=== PATIENT | female | born 2000 | race Caucasian/White ===

== ENCOUNTER 2023-09-02 10:59 | Day surgery (SDC) | payer MEDICAID ==
[~2023-09-02] VITALS: Ht 154.9 cm; Wt 74.4 kg
[~2023-09-02 10:59] MED LIST: AMOXICILLIN 8751 TAB PO; CEPHALEXIN500 M1 PO; NORCO 325 MG-51 TAB PO; NP THYROID30 MG PO; ROXICODONE 55 MG/TAB PO; TIROSINT88 MC1 PO; ZOFRAN ODT4 MG PO; ZYRTEC 10MG10 MG PO
[2023-09-02] MEDS ORDERED: Ondansetron 4 MG/2 ML VIAL IV PRN ×2 (11:30→13:15)
[2023-09-02] MEDS ORDERED: Morphine 4 MG/ML VIAL IV ONE (11:30)
[2023-09-02] MEDS ORDERED: Ketorolac 15 MG/ML VIAL IV SCH (11:30)
[2023-09-02] MEDS ORDERED: NS 1,000 ML IV SCH (11:30)
[2023-09-02] MEDS ORDERED: Promethazine 25 MG/ML 1 ML VIAL IV PRN (13:15)
[2023-09-02] MEDS ORDERED: fentaNYL 50 MCG/ML 2 ML VIAL IV PRN (13:15)
[2023-09-02] MEDS ORDERED: hydrALAZINE 20 MG/ML 1 ML VIAL IV PRN (13:15)
[2023-09-02] MEDS ORDERED: HYDROmorphone 2 MG/1 ML VIAL IV PRN (13:15)
[2023-09-02] MEDS ORDERED: droPERidol 2.5 MG/ML 2 ML VIAL IV PRN (13:15)
[2023-09-02] MEDS ORDERED: LR 1,000 ML IV SCH (14:00)
[2023-09-02 14:37] VITALS: BP 106/63; PULSE 84; TEMP 99.5
--- NOTE | 2023-09-02 14:40 | NUR ---
1115 PT TO [place] 2 VIA WHEEL CHAIR. PT IS CRYING R/T PAIN SX, REPORTING 6/10 PAIN IN LLQ ABD. AND LEFT FLANK. CONSENTS REVIEWED AND SIGNED BY PT. IV ESTABLISHED. KUB COMPLETED AFTER CONFIRMED NON STATUS. NS INFUSING VIA DIAL A FLOW AT 150 ML/HR. PT MEDICATED WITH TORADOL. CALL LIGHT IN REACH. WARM BLANKET PROVIDED. 1350 PT AMBULATORY TO RESTROOM. URINE STRAINED AND 2 MM STONE FOUND AND COLLECTED.
[2023-09-02 15:50] VITALS: BP 100/59; PULSE 72; TEMP 98.5
--- NOTE | 2023-09-02 16:01 | NUR ---
1458 DR. FUENTES NOTIFIED THAT PATIENT HAS PASSED A 1-2 MM STONE AND IS CURRENTLY PAIN FREE. RECEIVED VERBAL ORDER TO DISCHARGE PATIENT TO HOME AND FOLLOW UP NEEDED.
--- NOTE | 2023-09-02 16:03 | NUR ---
PATIENT TOLERATED A BLUEBERRY MUFFIN AND APPLE JUICE. 1556 PHYSICIAN DISCHARGE INSTUCTIONS AND PATIENT EDUCATIONAL MATERIALS REVIEWED WITH PATIENT AND HER MOTHER.QUESTIONS INVITED AND ANSWERED. PATIENT DECLINED OFFERED WHEEL CHAIR AND AMBULATED TO [facility]OBBY FOR A RIDE HOME WITH HER MOTHER IN [facility].
== END 2023-09-02 15:56 | disposition home or self-care (01) ==
LOC: SDCO 10:59
PROVIDERS: Urology
DX: N20.1 Calculus of ureter (principal)
CPT/HCPCS: J1885; J7030